=== PATIENT | female | born 1945 | race Caucasian/White ===

== ENCOUNTER → 2019-04-12 | Outpatient (CLI) | payer MEDICARE, OTHER ==
[~2019-04-12] MED LIST: ACHD5005 PO; ACYC800T PO; CYCL-97 PO; CYCL10TA9 PO; ESCI20TA38 PO; HCT25T PO; HYDR-3720 PO; OMEP-10 PO; PHEN37.555 PO; PROP60CA17 PO; TOPI50TA2 PO; ZLP10T PO
--- NOTE | 2019-04-12 15:30 | Diagnostic Imaging Report ---
INDICATION: Generalized abdominal pain. TIME OF EXAM: 3:12 p.m. FINDINGS: Postsurgical changes to lower lumbar spine are noted. The bowel gas pattern does show a large amount of stool throughout the left colon. Right colon is unremarkable. Bowel gas pattern is nonobstructed. No pathologic calcifications are seen. IMPRESSION: Moderate stool throughout the left colon. No other significant abnormality is detected. Dictated by: Dictated on workstation # [id number]
== END ==
LOC: RAD FS 14:44
PROVIDERS: ATTEND Family Medicine
DX: R15.9 Full incontinence of feces (principal); R10.84 Generalized abdominal pain; Z98.890 Other specified postprocedural states
CPT/HCPCS: 74019

== ENCOUNTER 2019-07-19 11:36 | Emergency (ER) | payer MEDICARE, OTHER ==
[~2019-07-19] VITALS: Ht 160 cm; Wt 95.5 kg
[2019-07-19] MEDS ORDERED: NS IV 1000 ML 1,000 ML IV STA (12:33)
[2019-07-19] MEDS ORDERED: DICYCLOMINE 10 MG/ML (BENTYL) 2 ML AMP IM SCH (12:45)
[2019-07-19] MEDS ORDERED: ONDANSETRON 4 MG/2 ML (SDV) Z0FRAN IVP ONE (12:45)
[2019-07-19 13:17] LABS: BASOPHILS % (AUTO) 0 % (0-10); EOSINOPHILS % (AUTO) 0 % (0-10); HEMATOCRIT 36 % (35-52); HEMOGLOBIN 11.3 G/DL (11.5-16.0); LYMPHOCYTES # (AUTO) 0.3 X 10^3 (1.0-4.0); LYMPHOCYTES % (AUTO) 3 % (12-44); MEAN CORPUSCULAR HEMOGLOBIN 28 PG (25-34); MEAN CORPUSCULAR HGB CONC 32 G/DL (32-36); MEAN CORPUSCULAR VOLUME 88 FL (80-99); MEAN PLATELET VOLUME 9.5 FL (7.4-10.4); MONOCYTES # (AUTO) 0.5 X 10^3 (0.0-1.0); MONOCYTES % (AUTO) 4 % (0-12); NEUTROPHILS # (AUTO) 9.5 X 10^3 (1.8-7.8); NEUTROPHILS % (AUTO) 92 % (42-75); PLATELET COUNT 224 10^3/uL (130-400); WHITE BLOOD COUNT 10.3 10^3/uL (4.3-11.0)
[2019-07-19 13:30] LABS: BILIRUBIN,URINE NEGATIVE (NEGATIVE); CLARITY,URINE CLEAR; COLOR,URINE YELLOW; GLUCOSE, URINE (UA) NEGATIVE (NEGATIVE); KETONES,URINE 1+ (NEGATIVE); LEUKOCYTE ESTERASE ,URINE NEGATIVE (NEGATIVE); NITRITE,URINE NEGATIVE (NEGATIVE); PROTEIN,URINE 1+ (NEGATIVE); RBC,URINE RARE /HPF; SQUAMOUS EPITHELIAL CELL,UR 0-2 /HPF; UROBILINOGEN,URINE 0.2 MG/DL (NORMAL)
[2019-07-19 13:32] LABS: ALANINE AMINOTRANSFERASE 27 U/L (0-55); ALKALINE PHOSPHATASE 87 U/L (40-136); BILIRUBIN,TOTAL 0.5 MG/DL (0.1-1.0); BUN/CREATININE RATIO 24; CALCIUM 8.6 MG/DL (8.5-10.1); CARBON DIOXIDE 28 MMOL/L (21-32); CHLORIDE 100 MMOL/L (98-107); CREATININE SERUM 0.58 MG/DL (0.60-1.30); GFR ESTIMATED > 60; GLUCOSE 167 MG/DL (70-105); POTASSIUM 2.6 MMOL/L (3.6-5.0); SODIUM 139 MMOL/L (135-145); TOTAL PROTEIN 7.2 GM/DL (6.4-8.2)
[2019-07-19 13:33] LABS: ALBUMIN 4.1 GM/DL (3.2-4.5); LIPASE 17 U/L (8-78)
[2019-07-19 14:33] LABS: BAND NEUTROPHILS 11 %; BASOPHILS % (MANUAL) 0 %; EOSINOPHILS % (MANUAL) 0 %; LYMPHOCYTES % (MANUAL) 0 %; MONOCYTES % (MANUAL) 2 %; NEUTROPHILS % (MANUAL) 87 %; RBC MORPH NORMAL
[2019-07-19] MEDS ORDERED: metroNIDAZOLE 500 MG (FLAGYL) TAB PO ONE (15:30)
[2019-07-19] MEDS ORDERED: CIPROFLOXACIN 500 MG (CIPRO) TABLET PO SCH (15:30)
[2019-07-19] MEDS ORDERED: KCL 20 MEQ TAB (K-DUR) PO ONE (15:30)
--- NOTE | 2019-07-19 15:32 | ED GI ---
General Chief Complaint: Abdominal/GI Problems Stated Complaint: FLU-LIKE SYMPTOMS Nursing Triage Note: Started having diarrhea and weakness at 2100 last night and states the symptoms got much worse at 0300 this morning. Stated she was on her bedroom floor for a while and was so weak she was unable to get back in bed. Denies falling. States she has been hot and thinks she has a fever. Sepsis Screen: No Definite Risk History of Present Illness Date Seen by Provider: Jul 19, 2019 Time Seen by Provider: 12:00 Initial Comments The patient is a 73-year-old female with a history of hypertension and nuns dependent diabetes who presents with concern for acute onset of copious watery diarrhea with associated nausea and fatigue, all with onset overnight. Patient has had numerous episodes of watery diarrhea overnight and actually felt so fatigued as a result that she lowered herself to her bedroom floor and took about half an hour to get up. She did not sustain any injury during the episode. She feels very dehydrated. Patient is noted to be febrile here. No associated hematemesis, hematochezia, melena, cough, shortness of breath or chest pain, focal abdominal pain of any kind, flank pain, back pain, dysuria or hematuria, recent unusual travel, unusual foods, sick contacts with similar symptoms, recent hospitalizations, recent antibiotic use. Patient is pleasantly inappropriate interactive and alert and oriented and in no acute distress upon initial evaluation in the emergency department. Allergies and Home Medications Allergies Coded Allergies: Amoxicillin (Unverified Allergy, 09/30/12) Penicillins (Unverified Allergy, 09/30/12) WHEN LITTLE Sulfa(Sulfonamide Antibiotics) (Unverified Allergy, 09/30/12) Home Medications Acyclovir 800 Mg Tablet, 800 MG PO TID, (Reported) Cyclobenzaprine Hcl 10 Mg Tablet, 1 EACH PO Q8HR PRN, (Reported) Cyclobenzaprine Hcl 10 Mg Tablet, 1 TAB PO Q8HR PRN, (Reported) Escitalopram Oxalate 20 Mg Tablet, 20 MG PO DAILY, (Reported) Hydrochlorothiazide 25 Mg Tab, 25 MG PO DAILY, (Reported) Hydrocodone Bit/Acetaminophen 1 Each Tablet, 1-2 EACH PO Q6H PRN, (Reported) Hydrocodone Bit/Acetaminophen 1 Ea Tab, 1-2 EA PO Q4HR PRN, (Reported) Hydrocodone Bit/Acetaminophen 1 Ea Tab, 1-2 EA PO Q4HR PRN, (Reported) Omeprazole 20 Mg Capsule.dr, 20 MG PO DAILY, (Reported) Phentermine Hcl 37.5 Mg Capsule, 37.5 MG PO DAILY, (Reported) Propranolol Hcl 60 Mg Cap.sa.24h, 60 MG PO BID, (Reported) Topiramate 50 Mg Tablet, 50 MG PO WITH SUPPER, (Reported) Zolpidem Tartrate 10 Mg Tab, 10 MG PO HS PRN, (Reported) Patient Home Medication List Home Medication List Reviewed: Yes Review of Systems Review of Systems Constitutional: see HPI All Other Systems Reviewed Negative Unless Noted: Yes (Negative excepted noted.) Past [id number]-Fxpvky Hx Past Med/Social Hx: Reviewed Nursing Past Med/Soc Hx Patient Social History Alcohol Use: Denies Use Recreational Drug Use: No Smoking Status: Never a Smoker 2nd Hand Smoke Exposure: No Recent Foreign Travel: No Contact w/Someone Who Travel: No Recent Infectious Disease Expo: No Recent Hopitalizations: No Physical Abuse: No Sexual Abuse: No Mistreated: No Fear: No Immunizations Up To Date Date of Pneumonia Vaccine: Aug 27, 2009 Date of Influenza Vaccine: Jul 27, 2012 Past Medical History Surgeries: Yes (back surgery) Gallbladder, Hysterectomy, Orthopedic Respiratory: No Cardiac: Yes Hypertension Neurological: No Reproductive Disorders: No Genitourinary: No Gastrointestinal: No Musculoskeletal: Yes (CERVICAL STENOSIS) Endocrine: No HEENT: No Psychosocial: Yes Depression Integumentary: No Blood Disorders: No Family Medical History Reviewed Nursing Family Hx Physical Exam Vital Signs Vital Signs - First Documented 07/19/19 12:00 Temp 38.0 Pulse 91 Resp 16 B/P (MAP) 154/73 (100) Pulse Ox 100 Capillary Refill : Less Than 3 Seconds Height/Weight/BMI Height: '" Weight: lbs. oz. kg; 37.00 BMI Method: General Appearance: no apparent distress Exam Comments This is an older female appearing nontoxic and in no acute distress. Head is normocephalic and atraumatic. Neck is supple and nontender. Oropharynx is moist. Lungs are clear to auscultation in all stations. There is a normal S1 and S2 without rubs or gallops and capillary refill is appropriate, was 2 seconds globally. Abdomen is soft, nontender nondistended. Skin is warm and dry without cyanosis, clubbing or edema. Psychiatrically, the patient demonstrates appropriate mood and affect and is alert. Focused Exam Lactate Level 07/19/19 13:00: Lactic Acid Level 0.85 Lactic Acid Level Laboratory Tests Test 07/19/19 13:00 Lactic Acid Level 0.85 MMOL/L (0.50-2.00) Progress/Results/Core Measures Results/Orders Lab Results Laboratory Tests Test 07/19/19 13:00 07/19/19 13:14 Range/Units White Blood Count 10.3 4.3-11.0 10^3/uL Red Blood Count 4.07 L 4.35-5.85 10^6/uL Hemoglobin 11.3 L 11.5-16.0 G/DL Hematocrit 36 35-52 % Mean Corpuscular Volume 88 80-99 FL Mean Corpuscular Hemoglobin 28 25-34 PG Mean Corpuscular Hemoglobin Concent 32 32-36 G/DL Red Cell Distribution Width 14.0 10.0-14.5 % Platelet Count 224 130-400 10^3/uL Mean Platelet Volume 9.5 7.4-10.4 FL Neutrophils (%) (Auto) 92 H 42-75 % Lymphocytes (%) (Auto) 3 L 12-44 % Monocytes (%) (Auto) 4 0-12 % Eosinophils (%) (Auto) 0 0-10 % Basophils (%) (Auto) 0 0-10 % Neutrophils # (Auto) 9.5 H 1.8-7.8 X 10^3 Lymphocytes # (Auto) 0.3 L 1.0-4.0 X 10^3 Monocytes # (Auto) 0.5 0.0-1.0 X 10^3 Eosinophils # (Auto) 0.0 0.0-0.3 10^3/uL Basophils # (Auto) 0.0 0.0-0.1 10^3/uL Neutrophils % (Manual) 87 % Lymphocytes % (Manual) 0 % Monocytes % (Manual) 2 % Eosinophils % (Manual) 0 % Basophils % (Manual) 0 % Band Neutrophils 11 % Blood Morphology Comment NORMAL Sodium Level 139 135-145 MMOL/L Potassium Level 2.6 L 3.6-5.0 MMOL/L Chloride Level 100 98-107 MMOL/L Carbon Dioxide Level 28 21-32 MMOL/L Anion Gap 11 5-14 MMOL/L Blood Urea Nitrogen 14 7-18 MG/DL Creatinine 0.58 L 0.60-1.30 MG/DL Estimat Glomerular Filtration Rate > 60 BUN/Creatinine Ratio 24 Glucose Level 167 H 70-105 MG/DL Lactic Acid Level 0.85 0.50-2.00 MMOL/L Calcium Level 8.6 8.5-10.1 MG/DL Corrected Calcium 8.5 8.5-10.1 MG/DL Magnesium Level 1.6 1.6-2.4 MG/DL Total Bilirubin 0.5 0.1-1.0 MG/DL Aspartate Amino Transf (AST/SGOT) 25 5-34 U/L Alanine Aminotransferase (ALT/SGPT) 27 0-55 U/L Alkaline Phosphatase 87 40-136 U/L Total Protein 7.2 6.4-8.2 GM/DL Albumin 4.1 3.2-4.5 GM/DL Lipase 17 8-78 U/L Urine Color YELLOW Urine Clarity CLEAR Urine pH 6.0 5-9 Urine Specific [place] >1.030 1.016-1.022 Urine Protein 1+ H NEGATIVE Urine Glucose (UA) NEGATIVE NEGATIVE Urine Ketones 1+ H NEGATIVE Urine Nitrite NEGATIVE NEGATIVE Urine Bilirubin NEGATIVE NEGATIVE Urine Urobilinogen 0.2 NORMAL MG/DL Urine Leukocyte Esterase NEGATIVE NEGATIVE Urine RBC (Auto) TRACE H NEGATIVE Urine RBC RARE /HPF Urine WBC NONE /HPF Urine Squamous Epithelial Cells 0-2 /HPF Urine Crystals NONE /LPF Urine Bacteria NONE /HPF Urine Casts NONE /LPF Urine Mucus NEGATIVE /LPF Urine Culture Indicated NO Micro Results Microbiology 07/19/19 Stool Culture, Resulted Pending 07/19/19 Rotavirus Antigen - Final, Resulted 07/19/19 C. difficile GDH Antigen & Toxins - Final, Complete My Orders Orders - LEE GUERRA MD Cbc With Automated Diff (07/19/19 12:33) Comprehensive Metabolic Panel (07/19/19 12:33) Lipase (07/19/19 12:33) Ua Culture If Indicated (07/19/19 12:33) Stool Culture (07/19/19 12:33) Fecal Wbc (07/19/19 12:33) C Difficile Ag + Toxin A/B. (07/19/19 12:33) Rotavirus Antigen (07/19/19 12:33) Ondansetron Injection (Zofran Injectio (07/19/19 12:45) Ns Iv 1000 Ml (Sodium Chloride 0.9%) (07/19/19 12:33) Ed Iv/Invasive Line Start (07/19/19 12:33) Dicyclomine Injection (Bentyl Injection) (07/19/19 12:45) Lactic Acid Analyzer (07/19/19 12:33) Blood Culture (07/19/19 12:33) Magnesium (07/19/19 13:05) Manual Differential (07/19/19 13:00) Potassium Chloride (Tablet) (K Dur Table (07/19/19 15:30) Ciprofloxacin Tablet (Cipro Tablet) (07/19/19 15:30) Metronidazole Tablet (Flagyl Tablet) (07/19/19 15:30) Medications Given in ED Current Medications Medications Dose Ordered Sig/Simeon Route Start Time Stop Time Status Last Admin Dose Admin Metronidazole 500 mg ONCE ONCE PO 07/19/19 15:30 07/19/19 15:31 DC 07/19/19 15:51 500 MG Ondansetron HCl 4 mg ONCE ONCE IVP 07/19/19 12:45 07/19/19 12:46 DC 07/19/19 13:09 4 MG Potassium Chloride 40 meq ONCE ONCE PO 07/19/19 15:30 07/19/19 15:31 DC 07/19/19 15:50 40 MEQ Vital Signs/I&O 07/19/19 12:00 Temp 38.0 Pulse 91 Resp 16 B/P (MAP) 154/73 (100) Pulse Ox 100 Blood Pressure Mean: 100 Progress Progress Note : Progress Note Patient is resting comfortably and feeling better upon reassessment. Potassium is low at 2.6 -- we are starting with oral repletion as we do not seem to have IV potassium here for repletion purposes. Given hypokalemia and fever upon arrival in concert with copious watery diarrhea in a quite elderly female, we'll bring in for observation on telemetry, further electrolyte repletion and further care as indicated. No advanced imaging obtained as no tray abdominal pain anywhere. Patient has a penicillin allergy so we have covered her with ciprofloxacin and Flagyl after cultures drawn. Stool studies are obtained and pending. Patient does not have any significant risk factors for C. difficile so we'll hold on isolation precautions at this time. She is graciously accepted for admission to [facility] by Dr. Garcia. Departure Impression Primary Impression: Enteritis Additional Impression: Hypokalemia Disposition: ADMITTED INPATIENT Condition: Improved Departure-Patient Inst. Referrals: ANDREA ROBLEDO MD (PCP/Family) Primary Care Physician LEE GUERRA MD Jul 19, 2019 15:32
[2019-07-19] MEDS ORDERED: WATER (STERILE) FOR INJECTION 20 ML ONE (15:58)
[2019-07-19] MEDS ORDERED: PROMETHAZINE INJ 25 MG/ML (PHENERGAN) AMP IVP ONE (16:00)
[2019-07-19] MEDS ORDERED: ACETAMINOPHEN 500 MG TAB (TYLENOL) PO ONE (16:30)
--- NOTE | 2019-07-19 19:00 | NUR ---
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 Patient stated she does not want to wait and would like to go home. Informed Dr Simpson who said he would go talk to the patient.
[2019-07-19] MEDS ORDERED: POTA20TA15 PO (19:02)
[2019-07-19] MEDS ORDERED: ONDA4TAB11 PO (19:02)
[2019-07-19 19:12] VITALS: BP 144/57
== END 2019-07-19 19:29 | disposition other institution (70) ==
LOC: EDUNIT# 11:36 → ER FS 11:40 → 4TH 16:10 → UNDOADMOB 16:10
DX: K52.9 Noninfective gastroenteritis and colitis, unspecified (principal); E87.6 Hypokalemia; I10 Essential (primary) hypertension; E11.9 Type 2 diabetes mellitus without complications; F32.9 Major depressive disorder, single episode, unspecified; Z88.0 Allergy status to penicillin; Z88.2 Allergy status to sulfonamides; Z90.710 Acquired absence of both cervix and uterus
CPT/HCPCS: 36415; 80053; 81000; 83605; 83690; 83735; 85007; 85027; 87015; 87040; 87045; 87046; 87324; 87425; 87449; 87899

== ENCOUNTER 2020-10-06 05:33 | Outpatient (CLI) | payer MEDICARE, OTHER ==
[~2020-10-06] VITALS: Ht 160 cm; Wt 90.9 kg
[~2020-10-06 05:33] MED LIST changes: +ONDA4TAB11 PO; +POTA20TA15 PO
[2020-10-06] MEDS ORDERED: IBUP-1780 PO (10:55)
[2020-10-06] MEDS ORDERED: OMEP20CA18 PO (10:55)
[2020-10-06] MEDS ORDERED: HYDR25TA4 PO (10:55)
[2020-10-06] MEDS ORDERED: ZOLP10TA PO (10:55)
[2020-10-06] MEDS ORDERED: DULO60CA59 PO (10:55)
[2020-10-06] MEDS ORDERED: ASPI-999 PO (10:55)
[2020-10-06] MEDS ORDERED: ROPI1TAB PO (10:55)
[2020-10-06] MEDS ORDERED: GBPN600T PO (10:55)
== END 2020-10-06 10:58 | disposition home or self-care (01) ==
LOC: PREOP 05:33
PROVIDERS: ATTEND Surgery
DX: Z01.812 Encounter for preprocedural laboratory examination (principal); Z12.11 Encounter for screening for malignant neoplasm of colon; D64.9 Anemia, unspecified; Z20.828 Contact with and (suspected) exposure to other viral communicable diseases
CPT/HCPCS: 87635

== ENCOUNTER 2020-10-09 08:52 | Day surgery (SDC) | payer MEDICARE, OTHER ==
[~2020-10-09] VITALS: Ht 160 cm; Wt 90.9 kg
[~2020-10-09 08:52] MED LIST changes: +ASPI-999 PO; +DULO60CA59 PO; +GBPN600T PO; +HYDR25TA4 PO; +IBUP-1780 PO; +OMEP20CA18 PO; +ROPI1TAB PO; +ZOLP10TA PO
[2020-10-09] MEDS ORDERED: LACTATED RINGERS 1,000 ML IV STA (09:05)
[2020-10-09] MEDS ORDERED: LACTATED RINGERS 1,000 ML IV ONE (09:10)
[2020-10-09 09:40] VITALS: BP 133/75
--- NOTE | 2020-10-09 10:21 | Progress Note-Pre Operative ---
Pre-Operative Progress Note H&P Reviewed The H&P was reviewed, patient examined and no changes noted. Time Seen by Provider: 10:18 Date H&P Reviewed: Oct 09, 2020 Time H&P Reviewed: 10:14 Pre-Operative Diagnosis: Rectal bleed, anemia RAINER DING DO Oct 09, 2020 10:21
[2020-10-09] MEDS ORDERED: PROPOFOL INJECTION 50 ML IV ONE (11:10)
[2020-10-09 11:50] VITALS: BP 104/54
--- NOTE | 2020-10-09 11:53 | Progress Note-Post Operative ---
Post-Operative Progess Note Surgeon (s)/Capacity Planning Analyst (s) Surgeon RAINER DING DO Capacity Planning Analyst: none Pre-Operative Diagnosis Rectal bleed, anemia Post-Operative Diagnosis Rectal polyp Diverticula Int hemorrhoids Procedure & Operative Findings Date of Procedure 10/09/20 Procedure Performed/Findings colon with cold bx Anesthesia Type IV Sedation by SENIOR LITIGATION PARALEGAL Estimated Blood Loss Estimated blood loss (mL): scant Specimens/Packing Specimens Removed rectal polyp RAINER DING DO Oct 09, 2020 11:53
--- NOTE | 2020-10-09 11:54 | Endoscopy Discharge Instruct ---
Endo Procedure/Findings Findings 1.: Polyp 2.: Diverticulosis 3.: Internal Hemorrhoids Discharge Instructions - Activity: You might feel a little sleepy until tomorrow. This is due to the medicine you received to relax you. Until tomorrow, you should: NOT drive a car, operate machinery or power tools. NOT drink any alcoholic beverages. NOT make any important decisions or sign importortant papers. Do not return to work until tomorrow, unless otherwise instructed. Resume previous activities tomorrow. Diet: Start by taking liquids. If you tolerate liquids, advance to solid food. 1.: Colonscopy in 5 years Notify Physician - If you experience excessive bleeding, unusual abdominal pain, fever, or chest pain, contact your doctor immediately. RAINER DING DO Oct 09, 2020 11:54
[2020-10-09 11:55] VITALS: BP 121/54
[2020-10-09 12:00] VITALS: BP 118/58
[2020-10-09 12:29] VITALS: BP 142/65
[2020-10-09 12:30] VITALS: BP 142/65
--- NOTE | 2020-10-09 12:33 | Anesthesia-General Post-Op ---
MAC Patient Condition Mental Status/LOC: Same as Preop Cardiovascular: Satisfactory Nausea/Vomiting: Absent Respiratory: Satisfactory Pain: Controlled Complications: Absent Post Op Complications Complications None Follow Up Care/Instructions Patient Instructions None needed. Anesthesiology Discharge Order Discharge Order Patient is doing well, no complaints, stable vital signs, no apparent adverse anesthesia problems. No complications reported per nursing. NAS SANTANA CRNA Oct 09, 2020 12:33
--- NOTE | 2020-10-09 22:36 | OPERATIVE REPORT ---
DATE OF SERVICE: 10/09/2020 PREOPERATIVE DIAGNOSES: Rectal bleed, anemia. POSTOPERATIVE DIAGNOSES: Multiple large diverticula, small rectal polyp and some internal hemorrhoids. PROCEDURE: Colonoscopy with cold biopsy. SURGEON: Nathan Cintron DO MOUNTING INSPECTOR: None. ANESTHESIA: IV sedation by the AUDIT ASSOCIATE. SPECIMEN: Rectal polyp. BLOOD LOSS: Scant. FLUIDS: Per anesthesia. POSTOPERATIVE CONDITION: Stable. INDICATION FOR PROCEDURE: The patient is a 75-year-old female who has been seen rectal bleeding and her hemoglobin had dropped down to 11 and then down to 9, and needed a workup. FINDINGS: The patient had multiple large diverticula, did not see any obvious bleeding. Small polyp in the rectum and some internal hemorrhoids. PROCEDURE NOTE: After informed consent was obtained, the patient was brought to the endoscopy suite, placed in bed in left lateral decubitus position. She was administered IV sedation by the AUDIT ASSOCIATE who then monitored her vitals the entire time, heart rate, blood pressure and pulse ox. Scope was inserted. Noted some retained fecal material, mostly fluid, able to suction almost all of it up, then started noting a small and then very large diverticula seen throughout the sigmoid, descending colon and all the way to the right side as well, got to the cecum, but about 150 cm in, took a picture of the appendiceal orifice, noted the ileocecal valve, then slowly withdrew the scope insufflating to look circumferentially at the weaver looking at the cecum, up the ascending colon to the hepatic flexure, then down the transverse colon, splenic flexure, into the descending colon down in the sigmoid and finally into the rectum, retroflexed in rectal vault, saw some very minimal internal hemorrhoids and then saw a polyp. I elected to do a cold biopsy, able to remove this polyp completely and then removed the scope. The patient tolerated the procedure, recovered in endoscopy suite. Job ID: [id number] DocumentID: [id number] Dictated Date: 10/09/2020 15:51:02 Associate Professor Of History Date: 10/09/2020 22:35:39 Dictated By: NATHAN CINTRON DO
== END 2020-10-09 12:32 | disposition home or self-care (01) ==
LOC: ENDO 08:52
PROVIDERS: ATTEND Surgery
DX: D12.8 Benign neoplasm of rectum (principal); K62.5 Hemorrhage of anus and rectum; D64.9 Anemia, unspecified; K57.30 Diverticulosis of large intestine without perforation or abscess without bleeding; K64.8 Other hemorrhoids; I10 Essential (primary) hypertension; F32.9 Major depressive disorder, single episode, unspecified; M19.90 Unspecified osteoarthritis, unspecified site; Z79.899 Other long term (current) drug therapy; Z88.0 Allergy status to penicillin; Z88.2 Allergy status to sulfonamides; Z88.1 Allergy status to other antibiotic agents; Z90.710 Acquired absence of both cervix and uterus; Z90.49 Acquired absence of other specified parts of digestive tract
CPT/HCPCS: 88305

== ENCOUNTER → 2020-12-05 | Outpatient (CLI) | payer MEDICARE, OTHER | LOC: LAB FS 10:00 | PROVIDERS: ATTEND Orthopaedic Surgery | DX: Z01.812 Encounter for preprocedural laboratory examination (principal); Z20.822 Contact with and (suspected) exposure to COVID-19 | CPT/HCPCS: 87635 ==